=== PATIENT | female | born 1985 | race Caucasian/White ===

== ENCOUNTER 2019-11-27 10:43 | Outpatient (CLI) | payer OTHER, SELFPAY ==
[2019-11-27 11:12] LABS: Basophils Percent Auto 0.3 % (0.2-1.2); Eosinophils Absolute Auto 0.1 K/mm3 (0-0.3); Eosinophils Percent Auto 1.1 % (0-4.4); Hematocrit 36.6 % (37.0-47.0); Hemoglobin 12.6 g/dL (12.0-15.0); Immature Granulocyte Absolute 0.05 K/mm3 (0.00-0.031); Immature Granulocyte Percent A 0.4 % (0-0.5); Lymphocytes Absolute Auto 1.92 K/mm3 (0.9-3.2); Lymphocytes Percent Auto 15.7 % (18.3-44.2); Mean Corpuscular HGB Conc 34.4 g/dl (32-36); Mean Corpuscular Hemoglobin 32.8 pg (26-34); Mean Corpuscular Volume 95.3 fl (80-100); Mean Platelet Volume 12.7 fl (7.4-10.4); Monocytes Absolute Auto 0.6 K/mm3 (0.1-0.6); Neutrophils Absolute Auto 9.5 K/mm3 (1.3-6.7); Neutrophils Percent Auto 77.5 % (45.5-73.1); Platelet Count Result 154 k/mm3 (150-375); Red Blood Count 3.84 M/mm3 (4.2-5.4); Red Cell Distribution Width 13.1 % (11.5-14.5); White Blood Count 12.2 K/mm3 (4.5-10.0)
--- NOTE | 2019-11-28 08:08 | PC.NURSE ---
Patient was just here for preop labs.
[2019-11-28 11:35] LABS: Rapid Plasma Reagin Non-Reactive (NonReactive)
== END 2019-11-27 19:00 | disposition home or self-care (01) ==
LOC: ANHOBOP 10:50 → ANHLDR 10:52
PROVIDERS: Visit Provider Obstetrics & Gynecology
DX: Z01.818 Encounter for other preprocedural examination (principal)
CPT/HCPCS: 36415; 85025; 86592; 86850; 86900; 86901; 99199

== ENCOUNTER 2019-11-28 05:26 | Inpatient (IN) | payer OTHER, SELFPAY ==
[2019-11-28] VITALS (52 sets, daily range): BP systolic 98–146; BP diastolic 55–93; PULSE 49–71; RESP 13–19; TEMP 36.2–36.8; O2SAT 98–100; BMI 34.2
--- NOTE | 2019-11-28 06:14 | WPDANESEPPF ---
Anes - Initial Pre Proc Eval Procedure: Operation Date: 11/28/19 07:30 Proposed Procedures p Repeat Section With Bilateral Tubal Ligation - Vishal Sumner MD Date/Time: 11/28/19 06:14 Surgeon: Vishal Sumner MD Pre Op Diagnosis: Patient Data Age: 34 Gender: F Height: Weight: Patient hx anesthesia problems: none Family hx anesthesia problems: none [facility] Past Medical History Medical History (Updated 11/28/19 @ 06:15 by Fredrick Bernal MD) Bipolar 2 disorder Overweight Surgical History Surgical History (Updated 11/28/19 @ 06:15 by Fredrick Bernal MD) History of section Social History Social History (Updated 11/28/19 @ 06:15 by Fredrick Bernal MD) Smoking status: Current every day smoker Anes - Eval Final PreProcedure Day of Procedure 11/28/19 06:14 Patient weight: overweight Heart: regular rate and rhythm Lungs: clear to auscultation Airway: Mallampati scale class II and special considerations poor dentition Neurological: alert and oriented Last oral intake: >/= 8 hours ASA classification: III Emergent: no Anesthetic plan: proceed Anesthesia type and monitoring: regional spinal and standard monitoring Informed Consent: The patient's anesthetic plan and its attendant risks and benefits were discussed with the patient/family/POA. Questions were solicited and answers provided to the satisfaction of the patient/family/POA.
[2019-11-28] MEDS: ceFAZolin 2 GM/D5W 50 ML 2 GM/50 ML BAG IVPB (06:36)
[2019-11-28] MEDS: LACTATED RINGERS 250 ML 999 ML IVPB (06:38)
--- NOTE | 2019-11-28 07:32 | PM.IMHP ---
H&P: HPI History of Present Illness Chief complaint: Narrative: Nika Ledbetter is a 34 year old female 3 para 2001 at 39 weeks who presents for repeat and bilateral tubal ligation. She has a previous delivery and unwanted fertility. She denies any problems. She denies any nausea, vomiting, fever, chills. She denies any loss of fluid or vaginal bleeding. She denies any contractions. She denies any headache, blurry vision, epigastric pain. She denies any chest pain or shortness of breath. Review of Systems Constitutional: Constitutional: Reports no additional constitutional complaints, Denies fatigue, Denies headache(s), Denies lethargy and Denies weakness Eyes: Eyes: Reports no additional eye complaints, Denies blurry vision and Denies photophobia ENT: Reports as per HPI, Denies headache(s) and Denies neck pain Cardiovascular: Cardiovascular: Denies chest pain, Denies diaphoresis, Denies leg edema, Denies palpitations and Denies dyspnea Respiratory: Respiratory: Denies hemoptysis, Denies dyspnea and Denies wheezing Gastrointestinal: Gastrointestinal: Denies abdominal pain, Denies melena, Denies bloating, Denies hematochezia, Denies nausea and Denies vomiting Genitourinary: Genitourinary: Reports no additional female genitourinary complaints Musculoskeletal: Musculoskeletal: Denies joint swelling, Denies neck pain, Denies numbness and Denies stiffness Neurologic: Denies Abnormal speech present, Denies confusion, Denies headache(s), Denies numbness and Denies weakness Psychiatric: Psychiatric: Denies anxiety, Denies confusion, Denies depression, Denies homicidal ideation and Denies suicidal ideation Endocrine: Endocrine: Denies fatigue and Denies palpitations Allergic/Immunologic: Allergic/Immunologic: Denies wheezing PMFSH Past Medical History Medical History (Updated 11/28/19 @ 07:33 by Vishal Sumner MD) Bipolar 2 disorder Overweight Surgical History Surgical History (Updated 11/28/19 @ 07:33 by Vishal Sumner MD) History of section Social History Social History (Updated 11/28/19 @ 06:15 by Fredrcik Bernal MD) Smoking packs per day: 0.5 Smoking cigarettes per day: 10.0 Smoking status: Current every day smoker Tobacco type: cigarettes Substance use: current Gender identity (if verbalized by the patient): Female Spiritual care concerns: No Meds Home Medications and Allergies Home Medications Medication Instructions Recorded Confirmed Type escitalopram oxalate [Lexapro] 20 mg PO DAILY 11/28/19 11/28/19 History famotidine [Pepcid] 40 mg PO DAILY 11/28/19 11/28/19 History Vital Signs Vital Signs - 24 hr 11/28/19 06:15 11/28/19 06:16 11/28/19 06:31 Pulse Rate 71 69 67 Blood Pressure 117/57 L 120/74 116/75 Exam Const: General: healthy appearing, comfortable and no acute distress; No confusion Orientation/consciousness: No confusion Eyes: Direct Ophthalmoscopy: No photophobia Resp: Auscultation: clear to auscultation bilaterally, no rales, no rhonchi and no wheezes Cardio: Rate: regular rate Heart sounds: no click, no murmurs and no rubs GI: Inspection: non-distended GI Palp: No abdominal tenderness Auscultation: normal bowel sounds Neuro: General: No confusion Speech: No Abnormal speech present Extrem: General: normal to inspection, no pedal edema and no calf tenderness Assessment and Plan Assessment and plan (1) Previous section: Code(s): Z98.891 - History of uterine scar from previous surgery Status: Acute (2) Unwanted fertility: Code(s): Z30.09 - Encounter for other general counseling and advice on contraception Status: Acute Assessment and Plan: this patient is a 34-year-old multiparous female at 39 weeks gestation with a previous unwanted fertility. We have agreed to perform repeat delivery and bilateral tubal ligation. She understands the risks
[2019-11-28 07:52] LABS: Amphetamine Screen Urine Negative (Negative); Barbiturate Screen Urine Negative (Negative); Benzodiazepines Screen Urine Negative (Negative); Cannabinoid Screen Urine Positive (Negative); Cocaine Screen Urine Negative (Negative); Methadone Screen Urine Negative (Negative); Opiate Screen Urine Negative (Negative); Phencyclidine Screen Urine Negative (Negative)
--- NOTE | 2019-11-28 08:29 | PM.PROC ---
Procedure Note - Detailed Date of procedure: 11/28/19 Pre-op diagnosis: Unwanted fertility, previous Post-op diagnosis: same Procedure performed: Repeat low-transverse delivery, tubal ligation Description of procedure: The patient was taken the operating room. She was prepped and draped in the dorsal supine position with leftward tilt after induction of spinal anesthetic. When anesthesia was found to be adequate a low-transverse skin incision was made and carried down to the level the fascia with the knife. The fascial incision was made at the midline with a scalpel. The fascial incision was extended laterally with Graham scissors. The fascia was tented upward superior and inferior with Hoang clamps. The rectus muscles were dissected off bluntly. The rectus muscles at the midline. The preperitoneal fat was dissected bluntly at the superior aspect of the separate the rectus muscles. The peritoneal cavity was entered bluntly in the same area. The peritoneal incision was extended superior and inferior with good position of bladder. Bladder blade was inserted. A low-transverse incision was made on the uterus with the scalpel. It was carried down the level of the amniotic cavity with a knife. The amniotic cavity bluntly. The uterine incision was made laterally with blunt traction. The infant was delivered. The cord was clamped and cut. The infant was handed off to waiting pediatric staff. Cord bloods were obtained. The placenta was removed manually. The uterus was exteriorized. Uterus cleared of all clots and debris. Uterus closed in 0 Vicryl in a running locked fashion. An imbricating layer of 0 Vicryl was also placed on the to bolster the closure. The right Fallopian tube was grasped in the ampullary region with a [place]. It was raised away from the accompanying vein. A window was created in the broad ligament in this area of the tube. 0 Vicryl was used to ligate the proximal distal end of the skeletonize region of the tube. The segment of the tube was resected with scissors. The cut surfaces were cauterized. The uterus was returned to the abdomen. The gutters were cleared of all clots and debris. The fascia was closed 0 Vicryl in a running fashion. Subcutaneous tissue was irrigated and bleeding areas were cauterized. The skin was closed with subcuticular absorbable julissa. The incision was covered with derma schmid. The patient tolerated the procedure well. She was taken recovery room stable condition. Sponge, lap, needle counts were correct x2. Anesthesia: spinal Surgeon: Vishal Sumner MD Estimated blood loss (mL): 210 Drains: No Packing: No Pathology: none sent Complications: No immediate complications Condition: stable Disposition: floor Findings: Normal maternal anatomy. Average size with normal Apgars.
[2019-11-28] MEDS: KETOROLAC 30 MG/ML VIAL (*BKC) IV PUSH (10:13)
--- NOTE | 2019-11-28 10:48 | PC.NURSE ---
Patient transferred to post room #282 per stretcher from labor and delivery. Support person present. Oriented to unit, room, information board, rooming in, admission packet and security measures. Patient verbalizes understanding.
[2019-11-28] MEDS: OXYTOCIN 30 UNITS/NS 500 ML 30 UNITS/500 ML BAG 125 UNITS IV CONT (11:10)
[2019-11-28] MEDS: LORATADINE 10 MG TABLET PO (13:08)
[2019-11-28] MEDS: IBUPROFEN 600 MG TABLET PO (23:15)
[2019-11-29 05:56] LABS: Basophils Absolute Auto 0.1 K/mm3 (0.0-0.1); Basophils Percent Auto 0.4 % (0.2-1.2); Eosinophils Absolute Auto 0.2 K/mm3 (0-0.3); Eosinophils Percent Auto 1.3 % (0-4.4); Hematocrit 35.2 % (37.0-47.0); Hemoglobin 11.9 g/dL (12.0-15.0); Immature Granulocyte Absolute 0.04 K/mm3 (0.00-0.031); Immature Granulocyte Percent A 0.3 % (0-0.5); Lymphocytes Absolute Auto 1.71 K/mm3 (0.9-3.2); Lymphocytes Percent Auto 14.6 % (18.3-44.2); Mean Corpuscular HGB Conc 33.8 g/dl (32-36); Mean Corpuscular Hemoglobin 32.8 pg (26-34); Mean Platelet Volume 12.6 fl (7.4-10.4); Monocytes Absolute Auto 0.8 K/mm3 (0.1-0.6); Monocytes Percent Auto 7.2 % (2.6-8.5); Neutrophils Absolute Auto 8.9 K/mm3 (1.3-6.7); Neutrophils Percent Auto 76.2 % (45.5-73.1); Platelet Count Result 131 k/mm3 (150-375); Red Blood Count 3.63 M/mm3 (4.2-5.4); Red Cell Distribution Width 13.1 % (11.5-14.5); White Blood Count 11.7 K/mm3 (4.5-10.0)
[2019-11-29 07:45] VITALS: BP 121/77; PULSE 60; RESP 16; TEMP 36.6; O2SAT 100
--- NOTE | 2019-11-29 07:46 | WPDANLDPN2 ---
Anes-Prog Note L&D Date/Time: 11/29/19 07:46 Comfortable throughout: section Neuraxial method: spinal Epidural/Spinal procedure site: clean & non-tender Neuro status: Neuro function grossly intact. Cardiovascular status: normal Respiratory status: normal Airway patency: baseline Mental status: baseline Post-Op hydration status: normal Vital Signs: Last Vital Signs Temp 36.7 C 11/28/19 23:05 Pulse 61 11/28/19 23:05 Resp 16 11/28/19 23:05 BP 99/57 L 11/28/19 23:05 Pulse Ox 100 11/28/19 15:00 I/O: Intake & Output 11/28/19 11/28/19 11/29/19 15:59 23:59 07:59 Intake Total 2270 500 Output Total 175 600 Balance 2095 -100 Post-procedural complaints: none Patient feedback: Patient satisfied with anesthetic care.
--- NOTE | 2019-11-29 07:46 | WPDANLDNPN2 ---
Anes-Prog Note L&D-Neuraxial Date/Time: 11/29/19 07:46 Neuraxial medications: intrathecal PF morphine Opiod-related complaints: none Patient feedback: Patient satisfied with post-operative pain management.
[2019-11-29] MEDS: IBUPROFEN 600 MG TABLET PO (12:35)
--- NOTE | 2019-11-29 12:40 | PC.NURSE ---
Consult with pt., mother reports infant is more awake and will eagerly latch for some feedings. Mother is supplementing after all breastfeedings and will continue until milk supply is well established. Mother is able to independently latch infant without difficulties or discomfort, when is awake and rooting. If is sleepy or has any difficulties with latch mother will quickly bottle feed. Reviewed it is normal for several attempts before a is able to latch correctly. Mother plans on discharge today. Mother is feeding as required and waking to feed if needed. Infant has had several effective feedings in the past 24 hours, and is currently meeting outcomes for weight, output, jaundice and feeding frequencies. Mother states she feels confident to continue breast/bottle feeding at home. Reviewed transition to breast milk, signs of adequate intake, and engorgement/relief. Instructed to call ICP if intake/output less than required. Reviewed regular medications mother is taking. Information provided per Mirian. Reviewed community resources on the [facility] website and in the Mom/Baby guide. Information on outpatient services provided. Mother has no further questions at this time.
--- NOTE | 2019-11-29 18:31 | P.PNOB_ITS ---
OB - PN: Subj Subjective Date/time seen: 11/29/19 18:31 Patient comments: no complaints, pain well controlled, tolerating diet and flatus present OB - PN: Obj Data Labs CBC & Chem 7: 11/29/19 04:44 Labs: Laboratory Results - last 24 hr 11/29/19 04:44 WBC 11.7 H RBC 3.63 L Hgb 11.9 L Hct 35.2 L MCV 97.0 MCH 32.8 MCHC 33.8 RDW 13.1 Plt Count 131 L MPV 12.6 H Immature Gran % (Auto) 0.3 Neut % (Auto) 76.2 H Lymph % (Auto) 14.6 L [place] % (Auto) 7.2 Eos % (Auto) 1.3 Baso % (Auto) 0.4 Lymph # (Auto) 1.71 [place] # (Auto) 0.8 H Eos # (Auto) 0.2 Baso # (Auto) 0.1 Abs Immat Gran (auto) 0.04 H Absolute Neuts (auto) 8.9 H Absolute Nucleated RBC 0.0 Nucleated RBC % 0.0 OB - PN A/P Plan day: 1 Comments: Post Op LTCS - no problems, routine recovery, patient wants d/c today Time Spent With Patient Time: Total time spent is greater than 50% in coordination of care (as documented) at patient's floor/unit and/or counseling patient: Exam Const: General: cooperative, healthy appearing, comfortable and no acute distress Resp: Auscultation: no crackles, no rales, no rhonchi and no wheezes Cardio: Rhythm: regular rhythm Heart sounds: no click and no murmurs GI: Inspection: non-distended Auscultation: normal bowel sounds Extrem: General: normal to inspection, no pedal edema and no calf tenderness
--- NOTE | 2019-11-29 18:32 | PM.OBDSVD ---
DS: Admitting Diagnosis Admitting Diagnosis Admitting Diagnosis: History of uterine scar from previous surgery DS: Discharge Diagnosis Discharge Diagnosis (1) Unwanted fertility: Code(s): Z30.09 - Encounter for other general counseling and advice on contraception Status: Acute (2) Previous section: Code(s): Z98.891 - History of uterine scar from previous surgery Status: Acute OB - DS: Summary OB Procedures : None OB Procedures Intrapartum: and Tubal ligation OB Procedures: : None Peripartum Data Infant Delivery Method: Section Laceration description: None Procedures: Procedures Operation Date: 11/28/19 07:30 Actual Procedures Side Surgeon p Repeat Section With Bilateral Tubal Ligation Bilateral Vishal Sumner MD complications: none Time Spent with Patient Time attestation: Total time spent providing and/or coordinating discharge services: DS: Data Data Completed and Pending Completed studies during hospitalization: Pending at discharge 11/28/19 08:00 Surgical [PTH] Routine Labs on day of discharge: Labs from last 24 hours 11/29/19 04:44 WBC 11.7 H RBC 3.63 L Hgb 11.9 L Hct 35.2 L MCV 97.0 MCH 32.8 MCHC 33.8 RDW 13.1 Plt Count 131 L MPV 12.6 H Immature Gran % (Auto) 0.3 Neut % (Auto) 76.2 H Lymph % (Auto) 14.6 L [place] % (Auto) 7.2 Eos % (Auto) 1.3 Baso % (Auto) 0.4 Lymph # (Auto) 1.71 [place] # (Auto) 0.8 H Eos # (Auto) 0.2 Baso # (Auto) 0.1 Abs Immat Gran (auto) 0.04 H Absolute Neuts (auto) 8.9 H Absolute Nucleated RBC 0.0 Nucleated RBC % 0.0 Discharge Plan Discharge Discharging Clinician: Vishal Sumner Patient Disposition: Home Health Service Activity: pelvic rest Diet: regular Patient Instructions: How to Stop Smoking (DC), Antibiotic Form Stand Alone Forms: General Discharge Information Follow-up/Referrals: Vishal Sumner MD [Physician] - Discharge Medications: New hydrocodone-acetaminophen 5-325 mg tablet 1 - 2 tablet PO Q4H PRN (Reason: pain) Qty: 25 RF: 0 Continued famotidine [Pepcid] 40 mg Tablet 40 mg PO DAILY RF: 0 escitalopram oxalate [Lexapro] 20 mg Tablet 20 mg PO DAILY RF: 0 Date of admission: 11/28/19 05:26 Primary Care Provider: Edwar,Noemi Admitting Provider: Vishal Sumner Attending physician on admission: Vishal Sumner
[2019-12-01 10:54] VITALS: BP 124/87; PULSE 65; RESP 22
== END 2019-11-29 18:51 | disposition home or self-care (01) | DRG 540 ==
LOC: ANHSURGERY 05:39 → ANHLDR 05:59 → ANHOB2 10:51
PROVIDERS: Admitting Provider Obstetrics & Gynecology; PCP Nurse Practitioner Family; Visit Provider Obstetrics & Gynecology
PROC: 10D00Z1 Extraction of Products of Conception, Low, Open Approach (ICD-10-PCS; CPT 59514; principal; 2019-11-28 07:30)
DX: O34.211 Maternal care for low transverse scar from previous cesarean delivery (principal); Z37.0 Single live birth; Z3A.39 39 weeks gestation of pregnancy; O99.344 Other mental disorders complicating childbirth; F31.81 Bipolar II disorder; O99.334 Smoking (tobacco) complicating childbirth; F17.210 Nicotine dependence, cigarettes, uncomplicated; Z30.2 Encounter for sterilization
CPT/HCPCS: 36415; 80307; 85025; 88302; A9270; J0131; J0690; J1200; J1885; J2274; J2370; J2405; J2590; J7120

== ENCOUNTER 2021-08-25 08:49 | Emergency (ER) | payer OTHER, SELFPAY ==
[2021-08-25] VITALS (9 sets, daily range): BP systolic 99–125; BP diastolic 65–75; PULSE 78; RESP 16; TEMP 36.9; O2SAT 98–100
--- NOTE | 2021-08-25 09:25 | ED.FEMALEGU ---
HPI - Female Genitourinary General Chief complaint: [employer] Stated complaint: vaginal cyst? Time Seen by Provider: 08/25/21 09:03 Source: patient Mode of arrival: ambulatory Limitations: no limitations History of Present Illness HPI Narrative: This is a 35 year old female that presents to the ER pelvic pain. Ongoing for weeks. Reports pain especially with sex. Reports she felt the area last night and felt a lump in her vagina. Reports she is starting to have some pain with urination now as well. Denies fever, abdominal pain, vomiting, or abnormal discharge. Related Data Home Medications Medication Instructions Recorded Confirmed escitalopram oxalate [Lexapro] 20 mg PO DAILY 11/28/19 11/28/19 famotidine [Pepcid] 40 mg PO DAILY 11/28/19 11/28/19 Allergies Allergy/AdvReac Type Severity Reaction Status Date / Time No Known Allergies Allergy Verified 08/25/21 08:56 Review of Systems Review of Systems: CONSTITUTIONAL: Denies fever GASTROINTESTINAL: Denies abdominal pain, nausea, vomiting GENITOURINARY: Reports dysuria All systems reviewed & are unremarkable except as noted in HPI and below PMFSH Past Medical History Medical History (Updated 08/25/21 @ 10:32 by Leyla Gandhi PA-C) Bipolar 2 disorder Overweight Surgical History Surgical History (Updated 11/28/19 @ 07:33 by Vishal Sumner MD) History of section Social History Social History (Updated 11/28/19 @ 06:15 by Fredrick Bernal MD) Smoking packs per day: 0.5 Smoking cigarettes per day: 10.0 Smoking status: Current every day smoker Tobacco type: cigarettes Substance use: current Gender identity (if verbalized by the patient): Female Spiritual care concerns: No Exam Narrative: GENERAL: Well-appearing, well-nourished, and in no acute distress. HEAD: Normocephalic, atraumatic. EYES: EOMI. CHEST: Clear to auscultation. No respiratory distress. No wheezes rales or rhonchi HEART: Regular rate and rhythm. No murmur heard. Normal peripheral pulses. ABDOMEN: Soft, nontender, nondistended, normal active bowel sounds. EXTREMITIES: Normal range of motion. No edema. SKIN: Warm, dry, no rash. NEURO: No focal deficits. Alert and oriented x3. PSYCH: Normal mood and affect PELVIC: Small (1cm) cyst present at the left side of the vulva, tender to palpation. No other rashes or lesions. Normal appearing cervix. No abnormal drainage Course Vital Signs Vital signs: Vital Signs Temperature 98.5 F 08/25/21 08:53 Pulse Rate 78 08/25/21 08:53 Respiratory Rate 16 08/25/21 08:53 Blood Pressure 125/70 08/25/21 08:53 Pulse Oximetry 100 08/25/21 08:53 Temperature 98.5 F 08/25/21 08:53 Pulse Rate 78 08/25/21 08:53 Respiratory Rate 16 08/25/21 08:53 Blood Pressure 117/69 08/25/21 09:01 Pulse Oximetry 100 08/25/21 09:01 MDM - Female Genitourinary MDM Narrative Medical decision making narrative: Patient presents to the emergency department for pelvic pain. Reporting feeling an abnormal lump is in her vagina. She has what appears to be a very small Bartholin cyst. There is no signs for infection or abscess. Her urine has 1+ leukoesterase and 79 white blood cells. This will be sent for culture. Bedside test is negative. She is having some discomfort with urination. Will start patient on oral antibiotic and was instructed on care of cyst with sits baths. Instructed to follow-up with her curriculum and assessment coordinator. She was given warnings to return to the ER Lab Data Attestation: I reviewed the patient's lab results. Labs: Lab Results 08/25/21 Range/Units 09:08 Urine Color Straw (Yellow) Urine Appearance Clear (Clear) Urine pH 7.0 (5.0-9.0) Ur Specific [place] 1.003 (1.001-1.035) Urine Protein Negative (Negative) mg/dL Urine Glucose (UA) Negative (Negative) mg/dL Urine Ketones Negative (Negative) mg/dL Ur Blood (Man) Negative (Negative) Urine Nitrate Negative (Negative) U
[2021-08-25 09:27] LABS: Add Urine Microscopic? YES; Appearance Urine Clear (Clear); Bacteria Urine Trace /hpf; Bilirubin Urine Negative (Negative); Blood Urine Negative (Negative); Color Urine Straw (Yellow); Glucose Urine UA Negative (Negative); Ketones Urine Negative (Negative); Leukocyte Esterase Ur 1+ LEU/UL (Negative); Nitrate Urine Negative (Negative); Protein Urine Negative (Negative); RBC Urine 0-2 /hpf (0-2); Squamous Epithelial Cell Urine Few /hpf (Few); Urobilinogen Urine Negative mg/dL (<2.0)
[2021-08-25 09:29] LABS: Specific Grav Ur 1.003 (1.001-1.035)
== END 2021-08-25 10:38 | disposition home or self-care (01) ==
PROVIDERS: Physician Assistant; Emergency Provider Emergency Medicine; PCP Nurse Practitioner Family
DX: N75.0 Cyst of Bartholin's gland (principal); R82.81 Pyuria; F31.81 Bipolar II disorder; E66.3 Overweight; Z68.29 Body mass index [BMI] 29.0-29.9, adult; F17.210 Nicotine dependence, cigarettes, uncomplicated
CPT/HCPCS: 81001; 81025; 87086; 87088; 99283